=== PATIENT | female | born 1995 | race Caucasian/White ===

== ENCOUNTER 2020-05-26 01:09 | Emergency (ER) | payer OTHER ==
--- NOTE | 2020-05-26 01:35 | EDM.PDOC ---
ED HPI GENERAL MEDICAL PROBLEM - General Chief Complaint: Upper Extremity Injury/Pain Stated Complaint: Right hand injury Time Seen by Provider: 05/26/20 01:30 Source of Information: Reports: Patient. Denies: Old Records (No [facility] records available) History Limitations: Reports: No Limitations - History of Present Illness INITIAL COMMENTS - FREE TEXT/NARRATIVE: The patient was brought to the emergency room via transport vehicle from [facility] for evaluation of a Workmen's Compensation injury, which occurred at about 12:20 AM this morning. Note that the patient caught her right hand between a cart and a safety gate resulting in a laceration with no history of foreign body, paresthesias, neurological deficits or other complaints or injuries. The laceration site was rinsed with tap water with Neosporin dressing also placed at [facility] prior to arrival. She is right-handed, however she has not injured this hand in the past. She complains of 4-5/10 throbbing pain with some radiation into the right elbow. No recent history of abdominal pain, heartburn, nausea, diarrhea, melena, gross hematochezia, or any food intolerance, including fatty foods, etc.. The patient also denies any recent fever, cough, wheezing, dyspnea, etc.. Onset: Today, Sudden Onset Date: 05/26/20 Onset Time: 00:20 Duration: Constant Location: Reports: Upper Extremity, Right, Radiates to (As above). Denies: Head, Face, Neck, Chest, Abdomen, Back, Pelvis, Upper Extremity, Left Quality: Reports: Same as Previous Episode, Throbbing Severity: Moderate Improves with: Reports: None Worsens with: Reports: None Context: Reports: Trauma (As above) Associated Symptoms: Denies: Confusion, Chest Pain, Cough, Diaphoresis, Fever/Chills, Headaches, Loss of Appetite, Malaise, Nausea/Vomiting, Shortness of Breath, Syncope, Weakness Treatments RESOURCE DEVELOPMENT MANAGER: Reports: Dressing(s), Other Medication(s) Right Hand Pain Score (Numeric/FACES): 4 - Related Data Allergies Allergy/AdvReac Type Severity Reaction Status Date / Time No Known Allergies Allergy Verified 05/26/20 01:11 Home Meds: Home Meds Sertraline [Zoloft] 25 mg PO DAILY 05/26/20 [History] Past Medical History HEENT History: Reports: Impaired Vision, Other (See Below). Denies: Allergic Rhinitis, Cataract, Glaucoma, Hard of Hearing, Macular Degeneration, Retinal Detachment Other HEENT History: Patient does wear glasses. ARTIFICIAL LIMB MAKER History: Reports: None. Denies: , Spontaneous : 0 LMP (Approximate): 1 Month (With the patient stopping her Depakote Provera injections about 6 months ago) Musculoskeletal History: Reports: None. Denies: Arthritis, Fracture Psychiatric History: Reports: Anxiety, Depression - Past Surgical History HEENT Surgical History: Reports: Oral Surgery, Other (See Below). Denies: Adenoidectomy, Eye Surgery, Laser Surgery, LASIK, Myringotomy w Tube(s), Naso- Sinus Surgery, Tonsillectomy Other HEENT Surgeries/Procedures: [place] teeth extraction x4 in 2016. Social & Family History - Tobacco Use Smoking Status *Q: Current Every Day Smoker Tobacco Use Within Last Twelve Months: Cigarettes Years of Tobacco use: 5 Packs/Tins Daily: 0.5 Packs/Tins Daily Comment: Started smoking at age 19. Used Tobacco, but Quit: No Smoking Cessation Information Provided To Patient: Yes Second Hand Smoke Exposure: Yes Source of Second Hand Smoke Exposure: smokes Second Hand Smoke Education Provided: Yes - Living Situation & Occupation Living situation: Reports: (2018), with Family () Occupation: Employed ([employer]. 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 ED EXAM, GENERAL - Physical Exam Exam: See Below Exam Limited By: No Limitations General Appearance: Alert, WD/WN, No Apparent Distress, Anxious (Mild secondary to injury) Head: Atraumatic, Normocephalic. No: Facial Swelling, Facial Tenderness, Sinus Tenderness Neck: Normal Inspection, Supple, Non-Tender, Full Range of Motion. No: Lymphadenopathy (L), Lymphadenopathy (R), Thyromegaly Respiratory/Chest: No Respiratory Distress, Lungs Clear, Normal Breath Sounds, No Accessory Muscle Use, Chest Non-Tender. No: Pleural Rub, Retractions Cardiovascular: Normal Peripheral Pulses, Regular Rate, Rhythm, No Edema, No Gallop, No JVD, No Murmur, No Rub. No: Gallop/S3, Gallop/S4, Friction Rub Peripheral Pulses: 2+: Radial (L), Radial (R) GI/Abdominal: Normal Bowel Sounds, Soft, Non-Tender, No Organomegaly, No Distention, No Abnormal Bruit, No Mass, Pelvis Stable. No: Guarding (Female) Exam: Deferred Rectal (Female) Exam: Deferred Back Exam: Normal Inspection, Full Range of Motion. No: CVA Tenderness (L), CVA Tenderness (R), Muscle Spasm Extremities: Normal Range of Motion, No Pedal Edema, Normal Capillary Refill. No: Non-Tender (Mild to moderate tenderness over the laceration site with 1.5 cm laceration over the extensor surface of the distal fifth metacarpal of the right hand with no crepitation, deformity, foreign body, or sign of fracture. Only mild ecchymosis and swelling in this area. Right elbow shows full range of motion with no evidence of injury, etc.), Kendall's Sign Neurological: Alert, Oriented, CN II-XII Intact, Normal Cognition, Normal Gait, Normal Reflexes, No Motor/Sensory Deficits Psychiatric: Anxious (As above), Tearful. No: Depressed Mood Skin Exam: Ecchymosis (As above), Wound/Incision (As above). No: Diaphoretic Lymphatic: No Adenopathy ED TRAUMA EXTREMITY PROCEDURES - Laceration/Wound Repair Right Dorsal Hand Lac/Wound Length In cm: 1.5 Appearance: Subcutaneous, Irregular, Clean Distal NVT: Neuro & Vascular Intact, No Tendon Injury Anesthetic Type: Local Local Anesthesia - Lidocaine (Xylocaine): 1% Plain Local Anesthetic Volume: 5cc Skin Prep: Providone-Iodine (Betadine) Saline Irrigation (cc's): 0 Exploration/Debridement/Repair: Wound Explored, In a Bloodless Field, Explored to Base, No Foreign Material Found Closed With: Sutures Suture Size: 4-0 # of Sutures: 4 Suture Type: Nylon, Interrupted, Simple Drain Placement: No Sterile Dressing Applied: Nurse Tetanus Status Addressed: Yes Complications: No Course - Vital Signs Last Recorded V/S: Last Vital Signs Temp 36.2 C 05/26/20 01:14 Pulse 62 05/26/20 01:14 Resp 14 05/26/20 01:14 BP 108/59 L 05/26/20 01:14 Pulse Ox 99 05/26/20 01:14 Vital Signs - 24 hr 05/26/20 01:14 Temperature [ 36.2 C Temporal] Pulse, 62 Peripheral [ Left Pulse Oximetry] Respiratory 14 Rate Blood Pressure 108/59 L [Left Upper Arm ] O2 Sat by Pulse 99 Oximetry - Orders/Labs/Meds Orders: Active Orders 24 hr Category Date Time Status Vaccines to be Administered [RC] PER UNIT ROUTINE Care 05/26/20 01:37 Active Hand Comp Min 3V Rt [CR] Stat Exams 05/26/20 01:37 Ordered Obtain Past Medical Record [OM.PC] Routine Oth 05/26/20 01:36 Active Labs: None Meds: Medications Discontinued Medications Generic Name Dose Route Start Last Admin Trade Name Freq PRN Reason Stop Dose Admin Diphtheria/Tetanus/Acell Pertussis 0.5 ml 05/26/20 01:37 05/26/20 01:43 Boostrix IM 05/26/20 01:38 0.5 ml .ONCE ONE Administration Lidocaine HCl 5 ml 05/26/20 01:36 05/26/20 01:42 Xylocaine-Mpf 1% INJECT 05/26/20 01:37 Not Given ONETIME ONE Neomycin/Polymyxin/Bacitracin 1 each 05/26/20 01:36 05/26/20 01:42 Triple Antibiotic Oint TOP 05/26/20 01:37 1 each ONETIME ONE Administration - Radiology Interpretation Free Text/Narrative:: X-rays of the right hand, complete, shows no evidence of fracture, dislocation, foreign body, etc. Departure - Departure Time of Disposition: 02:31 Disposition: Home, Self-Care 01 Condition: Good Clinical Impression: Laceration, Tobacco abuse counseling, Mixed anxiety depressive disorder Contusion Qualifiers: Encounter type: initial encounter Contusion area: hand Laterality: right Qualified Code(s): S60.221A - Contusion of right hand, initial encounter - Discharge Information *PRESCRIPTION DRUG MONITORING PROGRAM REVIEWED*: Not Applicable *COPY OF PRESCRIPTION DRUG MONITORING REPORT IN PATIENT TASNEEM: Not Applicable Instructions: Steps to Quit Smoking, [id number], Health Risks of Smoking, Hand Contusion, [id number], Laceration Care, Adult, [id number], Sutures, [place], or Adhesive Wound Closure, [id number] Forms: ED Department Discharge, ED Return to Work/School Form Additional Instructions: 1. Follow up with your regular provider in 10-14 days for suture removal as directed. Bring these discharge instructions with you to that visit. 2. Tylenol 650 mg by mouth every 4 hours and/or OTC ibuprofen 2-3 tabs by mouth every 6 hours with food as directed./needed. You may stagger these medications for 48-72 hours only, which essentially means that you are receiving a pain medication about every 2 hours. 3. Antibacterial soap wash/soak with subsequent antibacterial dressing such as Neosporin, etc. as directed 2 times per day until the wound or laceration site completely heals. Keep the area clean and dry with activity restrictions as discussed. Never use hydrogen peroxide for wound care. 4. Work excuse- See Form 5. Immediately after this visit verify that your cellular telephone's voicemail has been activated and is empty. Also verify that your home telephone's answering machine is operating properly and has space to receive messages. Note that it is sometimes necessary for us to be able to contact you at a later date to discuss your medical care. 6. Please remember that we are ALWAYS here for you and want to answer any questions you may have. Feel free to call the hospital any time and we call you back RUBA. 7. Stop all tobacco use RUBA as directed/per provided information and consider contacting Quit LIne, etc.. Sepsis Event Note (ED) - Evaluation Sepsis Screening Result: No Definite Risk - Focused Exam Vital Signs: Vital Signs Temp Pulse Resp BP Pulse Ox 05/26/20 01:14 36.2 C 62 14 108/59 L 99 - Problem List & Annotations (1) Laceration SNOMED Code(s): 897605620 Code(s): EZC0904 - Status: Acute Priority: High Current Visit: Yes Onset Date: 05/26/20 Annotation/Comment:: Excellent results with laceration repair as above. TDAP given with last TDAP on 10/25/1997. [place] work excuse and Workmen's Compensation forms were completed. Wound care, activity restrictions, etc. were extensively discussed. (2) Contusion SNOMED Code(s): 240991394 Code(s): T14.8XXA - OTHER INJURY OF UNSPECIFIED BODY REGION, INITIAL ENCOUNTER Status: Acute Priority: High Current Visit: Yes Onset Date: 05/26/20 Annotation/Comment:: Minor right hand contusion with no evidence of significant injury. Qualifiers: Encounter type: initial encounter Contusion area: hand Laterality: right Qualified Code(s): S60.221A - Contusion of right hand, initial encounter (3) Tobacco abuse counseling SNOMED Code(s): 764744465, 214851676, 543549590 Code(s): Z71.6 - TOBACCO ABUSE COUNSELING Status: Chronic Priority: Medium Current Visit: Yes Annotation/Comment:: Tobacco cessation strongly encouraged for both the patient and her with tobacco cessation information provided at discharge. (4) Mixed anxiety depressive disorder SNOMED Code(s): 098549843 Code(s): F41.8 - OTHER SPECIFIED ANXIETY DISORDERS Status: Chronic Priority: Medium Current Visit: Yes Annotation/Comment:: Moderate control based on today's exam. 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 She is also having increased job stress secondary to long work hours, etc.. Emotional support was provided. Continue to observe closely by her medical provider. - Problem List Review Problem List Initiated/Reviewed/Updated: Yes - My Orders Last 24 Hours: My Active Orders 05/26/20 01:36 Obtain Past Medical Record [OM.PC] Routine 05/26/20 01:37 Vaccines to be Administered [RC] PER UNIT ROUTINE Hand Comp Min 3V Rt [CR] Stat - Assessment/Plan Last 24 Hours: My Active Orders 05/26/20 01:36 Obtain Past Medical Record [OM.PC] Routine 05/26/20 01:37 Vaccines to be Administered [RC] PER UNIT ROUTINE Hand Comp Min 3V Rt [CR] Stat Assessment:: As above. Plan: As above. Extensive precautions were given to the patient, who is in agreement with the treatment plan. See Patient Instructions for further treatment and plan.
[2020-05-26] MEDS ORDERED: Bacitracin/Neomycin/Polymyxin B Oint 0.9 GM U/D Packet TOP ONE (01:36)
[2020-05-26] MEDS ORDERED: Diphtheria,Pertussis(Acell),Tetanus Vaccine 0.5 ML Syringe IM ONE (01:37)
== END 2020-05-26 02:30 | disposition home or self-care (01) ==
LOC: LL.ED 01:09
DX: S61.411A Laceration without foreign body of right hand, initial encounter (principal); Z71.6 Tobacco abuse counseling; F17.210 Nicotine dependence, cigarettes, uncomplicated; F41.8 Other specified anxiety disorders; F41.9 Anxiety disorder, unspecified; F32.9 Major depressive disorder, single episode, unspecified; Z23 Encounter for immunization; Z79.899 Other long term (current) drug therapy; W23.0XXA Caught, crushed, jammed, or pinched between moving objects, initial encounter; Y99.0 Civilian activity done for income or pay
CPT/HCPCS: 12001; 73130-RT; 90471; 90715; 99283; 99283-25